=== PATIENT | female | born 2000 | race Caucasian/White ===

== ENCOUNTER 2022-10-09 15:55 | Outpatient (CLI) | payer OTHER, BC, SELFPAY ==
[2022-10-09 16:27] LABS: Basophils Absolute Auto 0.1 K/mm3 (0.0-0.1); Basophils Percent Auto 0.8 % (0.2-1.2); Eosinophils Absolute Auto 0.2 K/mm3 (0-0.3); Eosinophils Percent Auto 1.6 % (0-4.4); Hematocrit 41.8 % (37.0-47.0); Hemoglobin 14.6 g/dL (12.0-15.0); Immature Granulocyte Absolute 0.03 K/mm3 (0.00-0.031); Immature Granulocyte Percent A 0.3 % (0-0.5); Lymphocytes Percent Auto 16.3 % (18.3-44.2); Mean Corpuscular HGB Conc 34.9 g/dl (32-36); Mean Corpuscular Hemoglobin 29.1 pg (26-34); Mean Corpuscular Volume 83.3 fl (80-100); Mean Platelet Volume 9.4 fl (7.4-10.4); Monocytes Absolute Auto 0.6 K/mm3 (0.1-0.6); Monocytes Percent Auto 6.1 % (2.6-8.5); Neutrophils Absolute Auto 6.9 K/mm3 (1.3-6.7); Neutrophils Percent Auto 74.9 % (45.5-73.1); Platelet Count Result 281 k/mm3 (150-375); Red Blood Count 5.02 M/mm3 (4.2-5.4); Red Cell Distribution Width 11.9 % (11.5-14.5); White Blood Count 9.2 K/mm3 (4.5-10.0)
[2022-10-09 17:09] LABS: HIV 1/2 Ab P24 Ag Result Negative (Negative)
[2022-10-09 17:39] LABS: Hepatitis B Surface Antigen Negative (Negative)
[2022-10-09 17:55] LABS: Hepatitis B Surface Antigen 0.06 S/C; Rubella IgG Antibody > 110.0 IU/ML
[2022-10-10 07:31] LABS: Rapid Plasma Reagin Non-Reactive (NonReactive)
== END 2022-10-09 15:56 | disposition home or self-care (01) ==
LOC: ANHLAB 15:57
PROVIDERS: PCP Student in an Organized Health Care Education/Training Program; Visit Provider Student in an Organized Health Care Education/Training Program
DX: N94.89 Other specified conditions associated with female genital organs and menstrual cycle (principal)
CPT/HCPCS: 36415; 84702; 85025; 86592; 86644; 86703; 86747; 86762; 86787; 86850; 86900; 86901; 87086; 87340; G0432

== ENCOUNTER 2022-10-13 12:15 | Observation (INO) | payer OTHER, BC, SELFPAY ==
[2022-10-13] MEDS: METOCLOPRAMIDE HCL INJ 10 MG/2 ML VIAL IV PUSH (12:59)
--- NOTE | 2022-10-13 13:09 | PC.NURSE ---
1303--When infusing IVF's it was noted that IV site is swelling and had infiltrated.
[2022-10-13] MEDS: DEXTROSE 5%/LACTATED RINGERS 1,000 ML 999 ML IV CONT ×2 (13:23→14:19)
[2022-10-13 13:31] VITALS: BMI 19.0
--- NOTE | 2022-10-13 13:31 | OBADM ---
This patient, Emily Rivera, admitted to the OB room OB Post 115 for observation. Patient/family oriented to hospital policies and general routines including ID bracelet, bed and alarms, visiting hours, pain management, procedures, bathroom and other care routines, personal items, smoking policy, room service/diet, and visiting hours. Patient/Family are encouraged to report perceived risks to care and to ask questions if they do not understand what they are told or what they should do.
[2022-10-13] MEDS: FAMOTIDINE 20 MG/2 ML VIAL IV PUSH (13:44)
--- NOTE | 2022-10-13 15:02 | PC.NURSE ---
1415--Pt. reports that she is feeling good and has eaten a bag of plain potato chips and has kept them down. POC discussed with pt. to infuse one more liter of IVF's then will reevaluate. Pt. requesting a bag of potato chips and water at this time.
--- NOTE | 2022-10-19 07:29 | PM.OBTRLD ---
OB - Triage/Final Diagnosis Visit Information Reason for evaluation: other (Hyperemesis) Comments/Additional reasons for admission: I have assessed the risk for this patient, Emily Heriberto Rivera, and determined that she would benefit from observation care.
== END 2022-10-13 15:50 | disposition home or self-care (01) ==
PROVIDERS: Admitting Provider Obstetrics & Gynecology; PCP Student in an Organized Health Care Education/Training Program; Visit Provider Obstetrics & Gynecology
DX: O21.0 Mild hyperemesis gravidarum (principal); Z3A.01 Less than 8 weeks gestation of pregnancy
CPT/HCPCS: 96361; 96374; 96375; G0378; G0379; J2765; J7121

== ENCOUNTER 2023-03-13 09:23 | Outpatient (CLI) | payer BC, SELFPAY ==
[2023-03-13 10:53] LABS: Basophils Absolute Auto 0.1 K/mm3 (0.0-0.1); Basophils Percent Auto 0.6 % (0.2-1.2); Eosinophils Absolute Auto 0.1 K/mm3 (0-0.3); Hematocrit 37.8 % (37.0-47.0); Hemoglobin 12.2 g/dL (12.0-15.0); Immature Granulocyte Absolute 0.42 K/mm3 (0.00-0.031); Immature Granulocyte Percent A 3.4 % (0-0.5); Lymphocytes Absolute Auto 2.54 K/mm3 (0.9-3.2); Lymphocytes Percent Auto 20.6 % (18.3-44.2); Mean Corpuscular HGB Conc 32.3 g/dl (32-36); Mean Corpuscular Hemoglobin 27.9 pg (26-34); Mean Corpuscular Volume 86.5 fl (80-100); Mean Platelet Volume 9.2 fl (7.4-10.4); Monocytes Percent Auto 7.9 % (2.6-8.5); Neutrophils Absolute Auto 8.2 K/mm3 (1.3-6.7); Neutrophils Percent Auto 66.5 % (45.5-73.1); Platelet Count Result 231 k/mm3 (150-375); Red Blood Count 4.37 M/mm3 (4.2-5.4); White Blood Count 12.4 K/mm3 (4.5-10.0)
[2023-03-13 11:07] LABS: Glucose 1 Hour PP 50gm Dose 67 mg/dL
[2023-03-13 11:49] LABS: HIV 1/2 Ab P24 Ag Result Negative (Negative)
== END 2023-03-13 09:24 | disposition home or self-care (01) ==
LOC: ANHLAB 09:24
PROVIDERS: PCP Student in an Organized Health Care Education/Training Program; Visit Provider Obstetrics & Gynecology
DX: Z34.90 Encounter for supervision of normal pregnancy, unspecified, unspecified trimester (principal); Z3A.00 Weeks of gestation of pregnancy not specified
CPT/HCPCS: 36415; 82947; 85025; 86703; G0432

== ENCOUNTER 2023-05-17 11:42 | Inpatient (IN) | payer BC, SELFPAY ==
[2023-05-17] VITALS (7 sets, daily range): BP systolic 115–142; BP diastolic 80–94; PULSE 68–101; BMI 29.2
--- NOTE | ~2023-05-17 | US_ITS ---
EXAMINATION: US OB limited w BPP DATE: 05/17/2023 13:45 BEEF GRADER INDICATION: Decreased movements TECHNIQUE: Real-time transabdominal obstetric ultrasound. FINDINGS: Ultrasound dated 04/25/2023 There is a single living fetus in vertex presentation. The placenta is anterior without placenta pre via. STEPHANIE is below normal limits measuring 4.4 cm. cardiac activity and movement is noted with a heart rate of beats per minute. Biophysical profile: breathin of 2 movement: 2 of 2 tone: 2 of 2 Amniotic flud pocket: 0 of 2 Total score: 6 of 8 IMPRESSION: 1. Single living intrauterine in vertex presentation. 2: Total biophysical profile score of 6/8. 3: Oligohydramnios. STEPHANIE measures 4.4 cm (normal range for gestational age is 7.5-24.4 cm). Reviewed, dictated and finalized at location L. GRADER IMPRESSION: 1. Single living intrauterine in vertex presentation. 2: Total biophysical profile score of 6/8. 3: Oligohydramnios. STEPHANIE measures 4.4 cm (normal range for gestational age is 7 .5-24.4 cm).
--- NOTE | 2023-05-17 14:35 | PC.NURSE ---
[id number] Campos gave report on NST, BPP w/STEPHANIE results. Per DR Campos orders for induction of labor. To transfer over to inpatient.
[2023-05-17] MEDS: DINOPROSTONE 10 MG VAG INSERT VAGINAL (15:30)
[2023-05-17 15:31] LABS: Basophils Absolute Auto 0.1 K/mm3 (0.0-0.1); Basophils Percent Auto 0.7 % (0.2-1.2); Eosinophils Absolute Auto 0.1 K/mm3 (0-0.3); Eosinophils Percent Auto 0.7 % (0-4.4); Hematocrit 35.4 % (37.0-47.0); Hemoglobin 11.5 g/dL (12.0-15.0); Immature Granulocyte Absolute 0.32 K/mm3 (0.00-0.031); Immature Granulocyte Percent A 2.1 % (0-0.5); Lymphocytes Absolute Auto 2.99 K/mm3 (0.9-3.2); Lymphocytes Percent Auto 19.9 % (18.3-44.2); Mean Corpuscular HGB Conc 32.5 g/dl (32-36); Mean Corpuscular Hemoglobin 25.7 pg (26-34); Mean Platelet Volume 9.7 fl (7.4-10.4); Monocytes Percent Auto 6.4 % (2.6-8.5); Neutrophils Absolute Auto 10.6 K/mm3 (1.3-6.7); Neutrophils Percent Auto 70.2 % (45.5-73.1); Platelet Count Result 343 k/mm3 (150-375); Red Blood Count 4.48 M/mm3 (4.2-5.4); Red Cell Distribution Width 12.9 % (11.5-14.5)
[2023-05-17 15:57] LABS: Alanine Aminotransferase 25 U/L (6-35); Albumin Level 3.7 g/dL (3.5-5.1); Alkaline Phosphatase 207 U/L (38-126); Anion Gap 8 mmol/L (8-16); Aspartate Amino Transferase 30 U/L (14-36); Bilirubin,Total 0.8 mg/dL (0.2-1.3); Blood Urea Nitrogen 9 mg/dL (7-17); Calcium 9.2 mg/dL (8.4-10.2); Carbon Dioxide 20 mmol/L (22-30); Chloride 106 mmol/L (98-107); Estimated Glomerular Filt Rate > 60; Glucose 109 mg/dL (65-110); Sodium 134 mmol/L (137-145)
--- NOTE | 2023-05-17 16:08 | LDADM ---
This patient, Emily Kearns, was admitted to Labor/Delivery/Recovery 107 on 05/17/23 at 11:42. Plans for labor, pain management and were discussed with patient. Patient/family oriented to hospital policies and general routines including ID bracelet, bed and alarms, visiting hours, pain management, procedures, bathroom and other care routines, personal items, smoking policy, room service/diet and guest tray routines, security routines, and visiting hours. Patient/Family are encouraged to report perceived risks to care and to ask questions if they do not understand what they are told or what they should do. See OBIX for further documentation.
[2023-05-17 16:13] LABS: Uric Acid 3.4 mg/dL (2.5-7.5)
--- NOTE | 2023-05-17 16:46 | PM.IMHP ---
H&P: HPI History of Present Illness Date/Time: 05/17/23 16:46 Chief Complaint: decreased movement Narrative: Emily is a 23yo @ 37. 6wks who presented to clinic for routine OB care. She endorsed decreased movement for the last couple days. She denies contractions, leakage of fluid, or bleeding. She was sent to L&D for NST/BPP/STEPHANIE. NST was reactive and reassuring w/o decelerations, but BPP was 6/8 and she was diagnosed with oligohydramnios with an STEPHANIE of 4.39cm; no 2x2 pocket. Her is complicated by: - Newly diagnosed oligo w/ STEPHANIE 4.39cm - H/o anxiety/depression Review of Systems Constitutional: Constitutional: Denies chills, Denies fever(s) and Denies headache(s) Eyes: Eyes: Denies change in vision ENT: Denies headache(s) Cardiovascular: Cardiovascular: Denies chest pain and Denies dyspnea Respiratory: Respiratory: Denies dyspnea Genitourinary: Genitourinary: Denies abnormal vaginal bleeding and Denies vaginal discharge Neurologic: Denies headache(s) Psychiatric: Psychiatric: Denies anxiety and Denies depression PMFSH Past Medical History Medical History Anxiety Costochondritis Depression Suppression of menses Family History Family History Grandparent Lung cancer Father Kidney malignancy Social History Social History Smoking status: Never smoker Alcohol intake: former Alcohol use details: occasional Substance use: never Substance use type: marijuana Do You Feel Safe in your Home?: Yes Lack of Transportation: No Lack of Food: Never True Current Housing: I Have Housing Concerned About Future Housing: No Difficulty Paying Gas/Electric Bills: No Difficulty Paying for Meds: No Currently Unemployed: No Education: High School Diploma/GED Difficulty w/ Childcare or Family Care: No Living arrangements: with family Occupation/Education: occupation Gender identity (if verbalized by the patient): Female Sexual Orientation (if Verbalized by the Patient): Straight or Heterosexual Spiritual care concerns: No Meds Home Medications and Allergies Home Medications Medication Instructions Recorded Confirmed Type doxylamine succinate 25 mg tablet 25 mg PO QHS PRN Sleep 01/01/23 05/17/23 History (Unisom (doxylamine)) vitamins-iron fumarate 65 1 tablet PO DAILY 01/01/23 05/17/23 History mg iron-folic acid 1 mg tablet amoxicillin 500 mg capsule 500 mg PO BID 05/17/23 05/17/23 History Allergies Allergy/AdvReac Type Severity Reaction Status Date / Time ondansetron [From Zofran] Allergy Mild Nausea and Verified 05/17/23 10:54 Vomiting Vital Signs Vital Signs - 24 hr 05/17/23 13:09 05/17/23 14:41 05/17/23 15:00 Pulse Rate 68 101 H 98 Blood Pressure 142/87 H 138/94 H Oxygen Delivery 05/17/23 16:00 05/17/23 16:06 Pulse Rate 91 Blood Pressure 126/89 Oxygen Delivery Room Air Exam Const: General: cooperative, healthy appearing, comfortable and no acute distress Nutritional Appearance: obese Orientation/consciousness: patient oriented x3 Resp: Effort & Inspection: normal respiratory effort Cardio: Rate: regular rate GI: GI Palp: No abdominal tenderness : Other: FHT's: 120's/ mod jany/ + accels/ no decels - cat 1 TOCO: irregular ctxs Cervix: closed/thick/high Membranes: intact Presentation: cephalic Skin: General skin exam: normal color Neuro: General: patient oriented x3 Extrem: General: normal to inspection Psych: Appearance: grossly normal Affect: normal affect Attitude: cooperative H&P: Results Labs Labs: Short CBC 05/17/23 Range/Units 15:16 WBC 15.0 H (4.5-10.0) K/mm3 Hgb 11.5 L (12.0-15.0) g/dL Hct 35.4 L (37.0-47.0) % Plt Count 343 (150-375) k/mm3 BMP 05/17/23 15:16 So
[2023-05-17 18:20] LABS: Creatinine Urine 124.1 mg/dL; Total Protein Urine Random 44 mg/dL; Ur Ttl Prot Creatinine Ratio 0.35 mg/mg (0-0.20)
--- NOTE | 2023-05-17 19:32 | WPDANESEPP ---
Anes - Eval Pre Procedure Procedure: labor epidural Date/Time: 05/17/23 19:32 Surgeon: jax Preop Diagnosis: pain during labor Pre Op Diagnosis: nst/bpp Patient Data Age: 23 Gender: F Height: 1.6 m Weight: 75 kg Last Vital Signs Pulse 98 05/17/23 18:25 BP 115/86 05/17/23 18:25 O2 Del Method Room Air 05/17/23 16:06 Allergies Allergy/AdvReac Type Severity Reaction Status Date / Time ondansetron [From Zofran] Allergy Mild Nausea and Verified 05/17/23 10:54 Vomiting Home Medications Medication Instructions Recorded Confirmed Type doxylamine succinate 25 mg tablet 25 mg PO QHS PRN Sleep 01/01/23 05/17/23 History (Unisom (doxylamine)) vitamins-iron fumarate 65 1 tablet PO DAILY 01/01/23 05/17/23 History mg iron-folic acid 1 mg tablet amoxicillin 500 mg capsule 500 mg PO BID 05/17/23 05/17/23 History Laboratory Tests 05/17/23 05/17/23 15:16 18:03 WBC 15.0 H K/mm3 (4.5-10.0) RBC 4.48 M/mm3 (4.2-5.4) Hgb 11.5 L g/dL (12.0-15.0) Hct 35.4 L % (37.0-47.0) MCV 79.0 L fl (80-100) MCH 25.7 L pg (26-34) MCHC 32.5 g/dl (32-36) RDW 12.9 % (11.5-14.5) Plt Count 343 k/mm3 (150-375) MPV 9.7 fl (7.4-10.4) Immature Gran % (Auto) 2.1 H % (0-0.5) Neut % (Auto) 70.2 % (45.5-73.1) Lymph % (Auto) 19.9 % (18.3-44.2) [place] % (Auto) 6.4 % (2.6-8.5) Eos % (Auto) 0.7 % (0-4.4) Baso % (Auto) 0.7 % (0.2-1.2) Lymph # (Auto) 2.99 K/mm3 (0.9-3.2) [place] # (Auto) 1.0 H K/mm3 (0.1-0.6) Eos # (Auto) 0.1 K/mm3 (0-0.3) Baso # (Auto) 0.1 K/mm3 (0.0-0.1) Abs Immat Gran (auto) 0.32 H K/mm3 (0.00-0.031) Absolute Neuts (auto) 10.6 H K/mm3 (1.3-6.7) Absolute Nucleated RBC 0.0 K/mm3 (0.0-0.012) Nucleated RBC % 0.0 % (0.0-0.2) Sodium 134 L mmol/L (137-145) Potassium 4.0 mmol/L (3.4-5.0) Chloride 106 mmol/L (98-107) Carbon Dioxide 20 L mmol/L (22-30) Anion Gap 8 mmol/L (8-16) BUN 9 mg/dL (7-17) Creatinine 0.50 L mg/dL (0.7-1.0) Estim Creat Clear Calc Not Reportable Estimated GFR > 60 (59 - ) Glucose 109 mg/dL (65-110) Uric Acid 3.4 mg/dL (2.5-7.5) Calcium 9.2 mg/dL (8.4-10.2) Total Bilirubin 0.8 mg/dL (0.2-1.3) AST 30 U/L (14-36) ALT 25 U/L (6-35) Alkaline Phosphatase 207 H U/L (38-126) Total Protein 7.0 g/dL (6.3-8.2) Albumin 3.7 g/dL (3.5-5.1) U Random Total Protein 44 mg/dL Urine Creatinine 124.1 mg/dL Protein/Creat Ratio 2 0.35 H mg/mg (0-0.20) RPR Pending Blood Type A Positive Antibody Screen Negative Patient hx anesthesia problems: none Family hx anesthesia problems: none Results Review: All pre-operative results and documents have been reviewed as part of the pre-operative evaluation. [facility] Past Medical History Medical History Anxiety Costochondritis Depression Suppression of menses Family History Family History Grandparent Lung cancer Father Kidney malignancy Social History Social History Smoking status: Never smoker Alcohol intake: former Alcohol use details: occasional Substance use: never Substance use type: marijuana Do You Feel Safe in your Home?: Yes Lack of Transportation: No Lack of Food: Never True Current Housing: I Have Housing Concerned About Future Housing: No Difficulty Paying Gas/Electric Bills: No Difficulty Paying for Meds: No Currently Unemployed: No Education: High School Diploma/GED Difficulty w/ Childcare or Family Care: No Living arrangements: with family
[2023-05-18] VITALS (104 sets, daily range): BP systolic 84–134; BP diastolic 52–101; PULSE 76–139; RESP 18; TEMP 36.2–36.9; O2SAT 93–100
[2023-05-18] MEDS: IBUPROFEN 600 MG TABLET PO ×2 (00:44→17:52)
[2023-05-18] MEDS: fentaNYL CITRATE INJ (*CRX) 100 MCG/2 ML VIAL 50 MCG IV PUSH ×2 (01:37→09:41)
[2023-05-18] MEDS: LACTATED RINGERS 1,000 ML 125 ML IV CONT ×2 (05:31→09:41)
[2023-05-18] MEDS: OXYTOCIN 30 UNITS/NS 500 ML 30 UNITS/500 ML BAG IV CONT (05:32)
--- NOTE | 2023-05-18 07:22 | WPDHPUPDATE1 ---
History and Physical Update Update Date/Time: 05/18/23 07:22 History and Physical has been reviewed, including an updated exam of the patient. There are NO changes in the patient's condition. Risks, benefits, and alternatives have been discussed and questions answered. Patient agrees to proceed with procedure.
--- NOTE | 2023-05-18 07:22 | PM.OBPNLAB ---
Pain Control Date/time seen: 05/18/23 07:22 Pain control: tolerating well Pelvic Exam Dilation (cm): 1 (.5) Effacement (%): 70 station: -2 Amniotic membrane status: Ruptured (AROM, clear 0715) Contractions Monitor mode: External Contraction pattern: Irregular Status status: Category l Assessment and Plan Pitocin rate (mU/min): 6 Assessment: induction ongoing Plan: continuous present management
[2023-05-18 11:59] LABS: Rapid Plasma Reagin Non-Reactive (NonReactive)
[2023-05-18] MEDS: METOCLOPRAMIDE HCL INJ 10 MG/2 ML VIAL IV PUSH (13:22)
--- NOTE | 2023-05-18 15:22 | PM.OBPRVD ---
OB - Vaginal Delivery Note Procedure Delivery date: 05/18/23 Events: Oligohydramnios Induction method: Per Cervidil Protocol Delivery augmentation: Rupture of Membranes and Pitocin Delivery monitor: External FHT and External Uterine Route of delivery: Episiotomy description: None Laceration Description: Perineal - 2nd Degree Delivery repair: vicryl Specimen: Yes (placenta) Quantitative Blood Loss (ml): 350 Anesthesia type: Epidural Disposition: Floor Complications: No immediate complications [place] Baby Date of : 05/18/23 Time of : 14:58 Weeks of gestation at delivery: 38 Infant gender: Male presentation: vertex Placenta delivery description: Expressed Cord Vessel Description: 3 Vessels and Delayed Cord Clamping score one minute: 8 score five minutes: 9 Narrative: Emily rapidly progressed to complete dilation with strong desire to push. She pushed for approximately 40 minutes with good maternal effort. She delivered the head over intact perineum. No nuchal cord was palpated. She easily delivered the infant's shoulders and body without complication. Delayed cord clamping was performed. The umbilical cord was then doubly clamped and cut. A segment of cord was collected for cord gases. The remaining cord blood was collected for typing. With Pitocin running and gentle downward traction on the cord, the placenta delivered without complications. Bimanual massage was performed and good uterine tone was noted. She was examined and a second-degree perineal laceration was identified. The laceration was repaired in the normal fashion using 2-0 Vicryl. Her uterus remained firm with minimal bleeding. Sponge, lap, instrument, and needle counts were correct at the end of the procedure. Mom and baby were left bonding in the birthing suite in stable condition. [facility] Delivery Billing Delivery Delivery: Delivery Charge
[2023-05-18] MEDS: OXYTOCIN 30 UNITS/NS 500 ML 30 UNITS/500 ML BAG 125 UNITS IV CONT (15:25)
[2023-05-18] MEDS: WITCH HAZEL 40 PADS 1 PAD TOPICAL (17:10)
[2023-05-18] MEDS: LORATADINE 10 MG TABLET PO (17:10)
[2023-05-18] MEDS: BENZOCAINE 20% AER SPR (*SP) 56 GM CAN 1 SPRAY TOPICAL (17:10)
--- NOTE | 2023-05-18 21:27 | OBPPTRN ---
1735 Patient transferred to post room #280 via W/C. Support person present. Oriented to unit, room, information board, rooming in, admission packet and security measures. Patient verbalizes understanding.
[2023-05-19 00:12] VITALS: BP 112/73; PULSE 84; RESP 18; TEMP 36.8; O2SAT 98
[2023-05-19] MEDS: IBUPROFEN 600 MG TABLET PO ×3 (00:44→16:30)
[2023-05-19 05:48] LABS: Hematocrit 31.4 % (37.0-47.0); Hemoglobin 10.1 g/dL (12.0-15.0)
--- NOTE | 2023-05-19 08:54 | PM.OBPNVD ---
OB - PN: Subj Subjective Date/time seen: 05/19/23 08:54 Narrative: PPD#1 Emily reports doing well today. 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 Her pain is controlled. She is tolerating regular diet, voiding, passing gas, and ambulating without issues. She is breast feeding. She would like her son circumcised. OB - PN: Obj Data Labs 05/19/23 05:08 05/17/23 15:16 Labs: Laboratory Results - last 24 hr 05/17/23 05/19/23 15:16 05:08 Hgb 10.1 L Hct 31.4 L RPR Non-reactive OB - PN A/P Assessment and Plan (1) Normal vaginal delivery of first : Code(s): O80 - Encounter for full-term uncomplicated delivery Status: Acute Plan day: 1 Plan: routine care and discharge home (tomorrow) Comments: - Pelvic rest; take meds as prescribed - ER return precautions: fever, n/v/abd pain, bleeding, HTN Time Spent With Patient Time: Total time spent is greater than 50% in coordination of care (as documented) at patient's floor/unit and/or counseling patient: Review of Systems Constitutional: Constitutional: Denies chills, Denies fever(s) and Denies headache(s) Eyes: Eyes: Denies change in vision ENT: Denies dizziness and Denies headache(s) Cardiovascular: Cardiovascular: Denies chest pain, Denies palpitations and Denies dyspnea Respiratory: Respiratory: Denies cough and Denies dyspnea Gastrointestinal: Gastrointestinal: Denies nausea and Denies vomiting Neurologic: Denies dizziness and Denies headache(s) Endocrine: Endocrine: Denies palpitations Exam Const: General: cooperative, comfortable and no acute distress Orientation/consciousness: patient oriented x3 Resp: Effort & Inspection: normal respiratory effort Auscultation: clear to auscultation bilaterally Cardio: Rate: regular rate GI: Inspection: non-distended GI Palp: No abdominal tenderness and Yes Soft to palpation Auscultation: normal bowel sounds : Other: fundus firm Skin: General skin exam: normal color Neuro: General: patient oriented x3 Extrem: General: normal to inspection Psych: Appearance: grossly normal Affect: normal affect Attitude: cooperative
[2023-05-19] MEDS: MULTIVIT/MIN/PREN/FOL AC/IRON TABLET 1 TAB PO (09:23)
[2023-05-19 09:30] VITALS: BP 124/94; PULSE 88; RESP 18; TEMP 36.6; O2SAT 100
[2023-05-19 19:15] VITALS: BP 129/85; PULSE 85; RESP 16; TEMP 36.4; O2SAT 98
[2023-05-20] MEDS: IBUPROFEN 600 MG TABLET PO ×2 (00:36→07:42)
[2023-05-20 07:30] VITALS: BP 126/85; PULSE 83; RESP 18; TEMP 36.5
[2023-05-20] MEDS: MULTIVIT/MIN/PREN/FOL AC/IRON TABLET 1 TAB PO (07:42)
--- NOTE | 2023-05-20 09:10 | P.DS_ITS ---
DS: Admitting Diagnosis Discharge Date 05/20/23 Admitting Diagnosis oligohydramnios DS: Discharge Diagnosis Discharge Diagnosis (1) Normal vaginal delivery of first : Code(s): O80 - Encounter for full-term uncomplicated delivery Status: Acute OB - DS: Summary OB Procedures : NST and Ultrasound OB Procedures Intrapartum: Spontaneous Vag Delivery OB Procedures: : None Peripartum Data Delivery Method: Natural Vaginal Laceration Description: Perineal - 2nd Degree Episiotomy description: None complications: none 1: Gender: Male Disposition of : home Status at Discharge Functional status at discharge: independent ambulation Overall status at discharge: patient is back to baseline Time Spent with Patient Time attestation: Total time spent providing and/or coordinating discharge services: Time spent: Less than 30 minutes Exam Const: General: cooperative, healthy appearing, comfortable and no acute distress Orientation/consciousness: patient oriented x3 Resp: Effort & Inspection: normal respiratory effort Auscultation: clear to auscultation bilaterally Cardio: Rate: regular rate GI: Inspection: non-distended GI Palp: No abdominal tenderness and Yes Soft to palpation Auscultation: normal bowel sounds : Other: fundus firm Skin: General skin exam: normal color Neuro: General: patient oriented x3 Extrem: General: normal to inspection Psych: Appearance: grossly normal Affect: normal affect Attitude: cooperative DS: Data Data Completed and Pending Pending studies at discharge: Pending at discharge 05/18/23 15:01 Surgical [PTH] Routine Labs on day of discharge: Labs from last 24 hours 05/19/23 05/17/23 05:08 15:16 Hgb 10.1 L Hct 31.4 L RPR Non-reactive Discharge Plan Discharge Attending physician on discharge: Kaylen Campos Discharging Clinician: Kaylen Campos Anticipated Discharge Date/Time: 05/20/23 10:00 Patient Disposition: Home, Self-Care Activity: may shower and pelvic rest Diet: regular Patient Instructions: Vaginal Delivery (GEN) Stand Alone Forms: General Discharge Information Follow-up/Referrals: Kaylen Campos MD [Physician] - 4 Weeks Discharge Medications: New acetaminophen 325 mg Tablet 650 mg PO Q6H PRN (Reason: Mild Pain (1-3) Or Headache) Qty: 90 0RF docusate sodium 100 mg Capsule 100 mg PO BID PRN (Reason: Constipation) Qty: 100 0RF ibuprofen 600 mg Tablet 600 mg PO Q6H PRN (Reason: Cramping) Qty: 40 0RF Continued vit-iron fum-folic ac 65 mg iron- 1 mg tablet 1 tablet PO DAILY Unisom (doxylamine) 25 mg tablet 25 mg PO QHS PRN (Reason: Sleep) amoxicillin 500 mg capsule 500 mg PO BID Date of admission: 05/17/23 11:42 Primary Care Provider: PHYSICIAN,MENAGERIE SUPERINTENDENT Admitting Provider: Kaylen Campos Attending physician on admission: Kaylen Campos Condition: Stable
--- NOTE | 2023-05-20 11:10 | PC.NURSE ---
Patient viewed the discharge video Mother & Baby Care, The First Two Weeks . Patient was given the opportunity and encouraged to ask questions. Patient verbalized understanding of information shared and has been given the mother/baby guide for home reference.
[2023-05-21 13:54] VITALS: BP 118/84; PULSE 81; RESP 18; TEMP 37.1; O2SAT 100
== END 2023-05-20 11:10 | disposition home or self-care (01) | DRG 807 ==
LOC: ANHOBOP 14:12 → ANHLDR 14:12 → ANHOB2 05-18 17:45
PROVIDERS: Admitting Provider Obstetrics & Gynecology; Visit Provider Obstetrics & Gynecology
DX: O41.03X0 Oligohydramnios, third trimester, not applicable or unspecified (principal); Z37.0 Single live birth; O76 Abnormality in fetal heart rate and rhythm complicating labor and delivery; O70.1 Second degree perineal laceration during delivery; Z3A.37 37 weeks gestation of pregnancy
CPT/HCPCS: 36415; 59025; 76815; 76819; 80053; 82570; 84156; 84550; 85014; 85018; 85025; 86592; 86850; 86900; 86901; 88307; A9270; J2590; J2765; J2795; J3010; J7120

== ENCOUNTER 2023-07-11 11:48 | Outpatient (CLI) | payer BC, SELFPAY ==
[2023-07-11 13:13] LABS: Beta HCG Quantitative < 2.39 mIU/ML
== END 2023-07-11 11:49 | disposition home or self-care (01) ==
LOC: ANHLAB 11:49
PROVIDERS: Visit Provider Obstetrics & Gynecology
DX: N92.6 Irregular menstruation, unspecified (principal)
CPT/HCPCS: 36415; 84702

== ENCOUNTER 2024-05-11 18:57 | Emergency (ER) | payer BC, SELFPAY ==
[2024-05-11 18:59] VITALS: BP 138/102; PULSE 64; RESP 18; TEMP 36.8; O2SAT 95
--- NOTE | 2024-05-11 19:36 | ED_ITS ---
HPI - General Adult General Chief complaint: Nausea/Vomiting/Diarrhea Stated complaint: vomiting Time Seen by Provider: 05/11/24 19:15 History of Present Illness HPI narrative: Patient is a 24-year-old female who presents the emergency department this evening complaining of nausea, vomiting and diarrhea that started this morning and has persisted all day. Patient states that she is unable to keep anything down. Admit that her son at home has similar symptoms. Admits to abdominal cramping that is generalized, nonfocal. Admits to feeling chills at home, no documented fevers. Denies any chest pain or shortness of breath, denies any additional URI symptoms. Related Data Home Medications ?Medication ?Instructions ?Recorded ?Confirmed ?Last Taken ?Type levonorgestrel 14 mcg/24 hr (up to 1 device intrauterine ONCE 07/12/23 01/08/24 Unknown History 3 yrs) 13.5 mg intrauterine device (Theresa) Allergies Allergy/AdvReac Type Severity Reaction Status Date / Time ondansetron (From Zofran) AdvReac Mild Nausea and Verified 05/11/24 19:37 Vomiting Review of Systems 2 Review of Systems: All systems are reviewed and are negative unless stated otherwise in the HPI. [facility] Past Medical History Medical History Encounter for IUD insertion Irregular periods/menstrual cycles Costochondritis Anxiety Depression Suppression of menses Family History Family History Grandparent Lung cancer Father Kidney malignancy Social History Social History Smoking status: Never smoker Alcohol intake: former Alcohol use details: occasional Substance use: never Substance use type: marijuana Do You Feel Safe in your Home?: Yes Lack of Transportation: No Lack of Food: Never True Current Housing: I Have Housing Concerned About Future Housing: No Difficulty Paying Gas/Electric Bills: No Difficulty Paying for Meds: No Currently Unemployed: No Education: High School Diploma/GED Difficulty w/ Childcare or Family Care: No Living arrangements: with family Occupation/Education: occupation Gender identity (if verbalized by the patient): Female Sexual Orientation (if Verbalized by the Patient): Straight or Heterosexual Spiritual care concerns: No Exam 2 Narrative: General: Alert, awake, afebrile, in moderate distress 2/2 nausea. HEENT: PERRL, no rhinorrhea, no post nasal drip, oropharynx clear. Neck: Trachea midline, no JVD, no lymphadenopathy. Cardiovascular: Regular rate and rhythm, no murmurs, rubs or gallops, no peripheral edema. Respiratory: Clear to auscultation bilaterally, no tachypnea, no wheezing, no rhonchi, no rubs, no respiratory distress. Abdomen: Soft, nontender, nondistended, no rebound, no guarding, no peritoneal signs. Musculoskeletal: No joint swelling or deformity, normal muscle tone. Skin: No rashes or petechia, no signs of infection. Psychiatric: Alert and oriented, normal behavior and judgment for situation. Neurological: Alert and oriented to person, place, and time. Follows all commands. No focal deficits, speech is clear and fluent. Course Vital Signs Vital signs: Vital Signs Temperature 98.2 F 05/11/24 18:59 Pulse Rate 64 05/11/24 18:59 Respiratory Rate 18 05/11/24 18:59 Blood Pressure 138/102 H 05/11/24 18:59 Pulse Oximetry 95 05/11/24 18:59 Oxygen Delivery Room Air 05/11/24 18:59 Temperature 98.2 F 05/11/24 18:59 Pulse Rate 64 05/11/24 18:59 Respiratory Rate 18 05/11/24 18:59 Blood Pressure 138/102 H 05/11/24 18:59 Pulse Oximetry 95 05/11/24 18:59 Oxygen Delivery Room Air 05/11/24 18:59 Medical Decision Making [facility] Narrative Medical decision making narrative: The patient was evaluated by myself in the emergency department. History is obtained from patient who is an independent historian and physical exam was performed. External medical records were reviewed at this time. IV was established and pertinent tests were ordered. Patient was administered 1 L IV fluid bolus with normal saline, patient has a documented allergy to Zofran at this time she was administered 10 mg IV Reglan and 25 mg of IV Benadryl. Laboratory results obtained revealing a leukocytosis of 15.6 otherwise unremarkable. Hemoglobin 16.2 likely hemoconcentration secondary to dehydration and patient was administered a 2nd L IV fluid bolus of normal saline. On repeat assessment of the patient, patient states that she feels significantly better after the fluids, Reglan and Benadryl. Patient states that her abdominal cramps have also subsided, currently denying any abdominal pain. Shared medical decision-making with the patient regarding obtaining a CT abdomen pelvis with contrast was discussed at this time and patient is in agreement that no CT is indicated at this time. Differential diagnosis considerations include acute viral syndrome, gastroenteritis, dehydration, electrolyte derangements. Comorbidities impacting this visit include none. I have evaluated and discussed social determinants of health with the patient that could potentially impact subsequent diagnosis and treatment plans. On repeat assessment of the patient, reevaluation revealed that the patient is doing well and is in no acute distress. Patient symptoms have improved since she arrived to our emergency department. Repeat vital signs were all reviewed and noted to be stable. Differential diagnosis and treatment plan were discussed with the patient at bedside. Patient agrees with discussion and after shared medical decision making agrees with discharge. All questions were answered to the patient's satisfaction. Patient will follow up with her PCP in 3-5 days. Script for Reglan was sent to patient's pharmacy to use as needed for nausea/vomiting. Patient was provided with strict return precautions and instructed to return to the emergency department if any new or worsening symptoms develop. The patient was discharged in stable condition. Vital Signs Vital Signs: Vital Signs Temperature 98.2 F 05/11/24 18:59 Pulse Rate 64 05/11/24 18:59 Respiratory Rate 18 05/11/24 18:59 Blood Pressure 138/102 H 05/11/24 18:59 Pulse Oximetry 95 05/11/24 18:59 Oxygen Delivery Room Air 05/11/24 18:59 Temperature 98.2 F 05/11/24 18:59 Pulse Rate 64 05/11/24 18:59 Respiratory Rate 18 05/11/24 18:59 Blood Pressure 138/102 H 05/11/24 18:59 Pulse Oximetry 95 05/11/24 18:59 Oxygen Delivery Room Air 05/11/24 18:59 Lab Data 05/11/24 19:39 05/11/24 19:39 Labs: Lab Results 05/11/24 Range/Units 19:39 WBC 15.6 H (4.5-10.0) K/mm3 RBC 5.64 H (4.2-5.4) M/mm3 Hgb 16.2 H D (12.0-15.0) g/dL Hct 47.4 H (37.0-47.0) % MCV 84.0 (80-100) fl MCH 28.7 (26-34) pg MCHC 34.2 (32-36) g/dl RDW 12.1 (11.5-14.5) % Plt Count 336 (150-375) k/mm3 MPV 9.6 (7.4-10.4) fl Immature Gran % (Auto) 0.4 (0-0.5) % Neut % (Auto) 93.6 H (45.5-73.1) % Lymph % (Auto) 4.0 L (18.3-44.2) % Bond % (Auto) 1.6 L (2.6-8.5) % Eos % (Auto) 0.1 (0-4.4) % Baso % (Auto) 0.3 (0.2-1.2) % Lymph # (Auto) 0.62 L (0.9-3.2) K/mm3 Bond # (Auto) 0.3 (0.1-0.6) K/mm3 Eos # (Auto) 0.0 (0-0.3) K/mm3 Baso # (Auto) 0.1 (0.0-0.1) K/mm3 Abs Immat Gran (auto) 0.07 H (0.00-0.031) K/mm3 Absolute Neuts (auto) 14.6 H (1.3-6.7) K/mm3 Absolute Nucleated RBC 0.000 (0.0-0.012) K/mm3 Nucleated RBC % 0.0 (0.0-0.2) % Sodium 139 (137-145) mmol/L Potassium 3.7 (3.4-5.0) mmol/L Chloride 105 (98-107) mmol/L Carbon Dioxide 21 L (22-30) mmol/L Anion Gap 13 H (4-12) mmol/L BUN 15 D (7-17) mg/dL Creatinine 0.60 L (0.7-1.0) mg/dL Estim Creat Clear Calc 100 ml/min Estimated GFR > 60 (59 - ) Glucose 150 H (65-110) mg/dL Calcium 9.6 (8.4-10.2) mg/dL Magnesium 1.7 (1.6-2.3) mg/dL Total Bilirubin 1.7 H (0.2-1.3) mg/dL AST 23 (14-36) U/L ALT 16 (6-35) U/L Alkaline Phosphatase 82 (38-126) U/L Total Protein 8.0 (6.3-8.2) g/dL Albumin 5.0 (3.5-5.1) g/dL Lipase 155 (23-300) U/L Serum HCG, Qual Negative Influenza A (RT-PCR) Negative (Negative) Influenza B (RT-PCR) Negative (Negative) SARS-CoV-2 RNA (RT-PCR) Negative (Negative) Discharge Plan Discharge Clinical Impression: Gastroenteritis Patient Disposition: Home, Self-Care Condition: Improved Instructions: Antibiotic Form, Gastroenteritis (ED) Additional Instructions: Please follow-up with your family doctor within the next 3-5 days. Return to the emergency department if any new or worsening symptoms develop. Maintain your oral hydration by drinking lots of fluids. Use the prescribed nausea medicine as needed for nausea/vomiting. Patient Language: Hungarian Prescriptions: New metoclopramide HCl [Reglan] 10 mg tablet 10 mg PO Q8H PRN (Reason: nausea and vomiting) Qty: 10 0RF No Action Theresa 14 mcg/24 hrs (3 yrs) 13.5 mg intrauterine device 1 device intrauterine ONCE Rx Instructions: as a single dose escitalopram oxalate [Lexapro] 5 mg tablet 5 mg PO DAILY Qty: 90 1RF estradiol 0.01 % (0.1 mg/gram) cream 1 g vaginal .COMPLEX Qty: 42.5 5RF Rx Instructions: Place 1g vaginally every other day for the first two weeks. After that, continue using 1g twice weekly Follow-up/Referrals: PHYSICIAN,UI UX ENGINEER [Primary Care Provider] - Roque Jones MD [Physician] - 3 Days Time of Disposition: 21:24
[2024-05-11] MEDS: METOCLOPRAMIDE HCL INJ 10 MG/2 ML VIAL IV PUSH (19:48)
[2024-05-11] MEDS: diphenhydrAMINE HCl INJ 50 MG/ML VIAL 25 MG IV PUSH (19:48)
[2024-05-11] MEDS: SODIUM CHLORIDE 0.9% IV 1,000 ML 999 ML IV CONT ×2 (19:48→21:27)
[2024-05-11 19:55] LABS: Basophils Absolute Auto 0.1 K/mm3 (0.0-0.1); Basophils Percent Auto 0.3 % (0.2-1.2); Eosinophils Percent Auto 0.1 % (0-4.4); Hematocrit 47.4 % (37.0-47.0); Hemoglobin 16.2 g/dL (12.0-15.0); Immature Granulocyte Absolute 0.07 K/mm3 (0.00-0.031); Immature Granulocyte Percent A 0.4 % (0-0.5); Lymphocytes Absolute Auto 0.62 K/mm3 (0.9-3.2); Mean Corpuscular HGB Conc 34.2 g/dl (32-36); Mean Corpuscular Hemoglobin 28.7 pg (26-34); Mean Platelet Volume 9.6 fl (7.4-10.4); Monocytes Absolute Auto 0.3 K/mm3 (0.1-0.6); Monocytes Percent Auto 1.6 % (2.6-8.5); Neutrophils Absolute Auto 14.6 K/mm3 (1.3-6.7); Neutrophils Percent Auto 93.6 % (45.5-73.1); Platelet Count Result 336 k/mm3 (150-375); Red Blood Count 5.64 M/mm3 (4.2-5.4); Red Cell Distribution Width 12.1 % (11.5-14.5); White Blood Count 15.6 K/mm3 (4.5-10.0)
[2024-05-11 20:10] LABS: Alanine Aminotransferase 16 U/L (6-35); Alkaline Phosphatase 82 U/L (38-126); Anion Gap 13 mmol/L (4-12); Aspartate Amino Transferase 23 U/L (14-36); Bilirubin,Total 1.7 mg/dL (0.2-1.3); Blood Urea Nitrogen 15 mg/dL (7-17); Calcium 9.6 mg/dL (8.4-10.2); Carbon Dioxide 21 mmol/L (22-30); Chloride 105 mmol/L (98-107); Estimated CRCL calculation 100 ml/min; Estimated Glomerular Filt Rate > 60; Glucose 150 mg/dL (65-110); Lipase 155 U/L (23-300); Magnesium 1.7 mg/dL (1.6-2.3); Potassium 3.7 mmol/L (3.4-5.0); Sodium 139 mmol/L (137-145)
[2024-05-11 20:11] LABS: SPREG INTERNAL CONTROL Positive; Serum Qual hCG Negative
[2024-05-11 20:31] LABS: Influenza A QL RT-PCR Negative (Negative); Influenza B QL RT-PCR Negative (Negative); SARS-CoV-2 RNA PCR Negative (Negative)
[2024-05-11 22:45] VITALS: BP 144/75; PULSE 98; RESP 18; O2SAT 99
== END 2024-05-11 22:50 | disposition home or self-care (01) ==
PROVIDERS: Emergency Provider Emergency Medicine
DX: K52.9 Noninfective gastroenteritis and colitis, unspecified (principal); Z20.822 Contact with and (suspected) exposure to COVID-19; F41.9 Anxiety disorder, unspecified; F32.A Depression, unspecified; Z97.5 Presence of (intrauterine) contraceptive device; Z79.899 Other long term (current) drug therapy
CPT/HCPCS: 36415; 80053; 83690; 83735; 84703; 85025; 87636; 96361; 96374; 96375; 99284; J1200; J2765; J7030